=== PATIENT | male | born 1955 | race Caucasian/White ===

== ENCOUNTER 2022-09-22 08:16 | Day surgery (SDC) | payer MEDICARE, SELFPAY ==
[2022-09-22] VITALS (11 sets, daily range): BP systolic 91–148; BP diastolic 47–84; PULSE 52–69; RESP 14–16; TEMP 36.2–36.8; O2SAT 94–99; BMI 31.1
[2022-09-22] MEDS: LACTATED RINGERS 1000 ML 1,000 ML 100 ML IV (08:30)
[2022-09-22] MEDS: SODIUM CHLORIDE 0.9 % (FLUSH) 10 ML SYRINGE IVF (08:30)
--- NOTE | 2022-09-22 08:55 | SUR.PREOP ---
Home covid test negative
--- NOTE | 2022-09-22 09:13 | SUR.PREOP ---
PT consult done at 0905 for crutch assessment/education.
[2022-09-22] MEDS: CEFAZOLIN 2 GM in 0.9 % SODIUM CHLORIDE Mini-bag 100 ML IVPB (10:21)
[2022-09-22] MEDS: ROPIVACAINE 0.5% 30 ML 150 MG INJECTION (10:51)
--- NOTE | 2022-09-22 10:53 | P.ORPRC_ITS ---
Procedure Note Date of procedure: 09/22/22 Procedure: PREOPERATIVE DIAGNOSIS: 1. Right knee medial meniscus tear POSTOPERATIVE DIAGNOSIS: 1. Right knee medial meniscus tear 2. 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 Right knee arthroscopic partial medial meniscectomy SURGEON: Hieu Miramontes M.D. INTERNATIONAL ACCOUNT REPRESENTATIVE: ALEXANDER Michele. Of note, an surgeon's assistant was critical for this case to aid in patient positioning, knee manipulation, instrument exchange, and closure. ANESTHESIA: Spinal EBL: 2ml TOURNIQUET: 25 minutes at 300 torr COMPLICATIONS: None evident INDICATIONS: The patient is a pleasant 66-year-old male who has experienced right knee pain particularly with any twisting or turning. Physical exam was concerning for medial meniscus tear, this was confirmed on MRI. Additionally, attempted nonoperative management has been tried, and failed. Thus, surgery was recommended. FINDINGS: Complex tearing posterior horn to midbody medial meniscus. Grade 3 chondromalacia medial femoral condyle broadly. Also grade 3 chondromalacia patella median ridge and medial facet with adjoining trochlear groove and medial anterior femur. Lateral compartment was intact lateral meniscus and articular cartilage. ACL and PCL were intact robust. No loose bodies evident. DESCRIPTION OF PROCEDURE: After a thorough discussion of risks, benefits, and alternatives, the patient was brought to the operating room and placed upon the operating table. Induction of anesthesia was undertaken as previously noted. 2g iv Ancef was administered within 1 hr of incision preoperatively. Appropriate time-out was performed identifying proper patient, site, and procedure. The right lower extremity was prepped and draped in the appropriate sterile fashion using ChloraPrep. The limb was exsanguinated and tourniquet inflated. Anterolateral and anteromedial portals were established with an 11 blade, and a diagnostic arthroscopy was performed. This identified the findings as noted above. Following the diagnostic arthroscopy, a partial medial menisectomy was performed with the combination of basket forceps and a motorized shaver. Following this, the meniscus was re-probed and found to be stable. Approximately 25-30 % of the overall meniscus required resection. At this stage, the shaver was reinserted into the suprapatellar pouch and all remaining meniscal debris was evacuated. Instruments were removed, excess fluid was drained, and closure performed with 4-0 Monocryl with Steri-Strips. Dressings were applied, the tourniquet deflated, and the patient was awoken from anesthesia and transferred to the PACU in stable condition. PLAN: 1. Weightbear as tolerated operative extremity. Crutch / walker ambulation assistance PRN. 2. Ice, acetominophen and/or ibuprofen, and Percocet for pain as needed. 3. Knee range of motion and quad sets/straight leg raise regularly 4. Follow up with PA visit in 1-2 weeks for a wound check and possibly to initiate physical therapy.
--- NOTE | 2022-09-22 11:03 | W.ANESCHARGE ---
Anesthesia Charges Start Date/Time Anesthesia Start Date: 09/22/22 Anesthesia Start Time: 10:13 Stop Date/Time Anesthesia Stop Date: 09/22/22 Anesthesia Stop Time: 11:01 Summary Emergency: No
--- NOTE | 2022-09-22 14:07 | W.ANESCHARGE ---
Anesthesia Charges Start Date/Time Anesthesia Start Date: 09/22/22 Anesthesia Start Time: 10:13 Stop Date/Time Anesthesia Stop Date: 09/22/22 Anesthesia Stop Time: 11:01 Summary Emergency: No
== END 2022-09-22 12:14 | disposition home or self-care (01) ==
PROVIDERS: Visit Provider Orthopaedic Surgery Sports Medicine
PROC: (CPT 29870; principal; 2022-09-22 10:00)
DX: S83.231A Complex tear of medial meniscus, current injury, right knee, initial encounter (principal); M22.41 Chondromalacia patellae, right knee
CPT/HCPCS: 29881; 01400; 97161; J0690; J2250; J2400; J2704; J2795; J3010; J7120

== ENCOUNTER 2023-01-01 08:02 | Outpatient (CLI) | payer MEDICARE, SELFPAY ==
--- NOTE | 2023-01-01 08:15 | MR_ITS ---
[address] [address] Phone:?[phone] Fax:?[phone] Referring Physician Information: Hieu Miramontes M.D. [id number] [facility] [address] Phone:?[phone] Fax:?[phone] Patient:Raf Adrian D.O.B:?1955 Sex:?Male Phone:?[phone] [facility] MRN:?[id number] Exam Date:?01/01/2023 ? EXAM: MRI of the RIGHT KNEE, without contrast CLINICAL INFORMATION: Male, 67 years old, with one month history of right knee pain. INDICATION: Evaluate for quadriceps strain. PRIOR SURGERY: History of knee arthroscopy. PLAIN FILMS: Knee radiographs dated 11/24/2022. COMPARISONS: Right knee MRI dated 10/14/2021. TECHNICAL INFORMATION: Using a 1.5T MR scanner and a localizing surface coil: sagittals: PD, PDFS coronals: PD, T2FS axials: PD, PDFS SEDATION: None CONTRAST: None FINDINGS: Knee joint: Effusion: Moderate-large right knee effusion. Popliteal cyst: Tiny, unruptured popliteal (Jim's) cyst. Loose bodies: None. Subcutaneous and extra-articular soft tissues: Unremarkable. Ligaments: ACL: Intact ACL anteromedial and posterolateral bundles, without sprain or tear. PCL: Intact PCL, without acute or chronic injury. MCL: Mild to moderate thickening involving the proximal one third of the superficial MCL, without MCL tear (oral PD series 7 images 17-19). LCL: Intact LCL, without injury. Posterolateral corner: No posterolateral corner soft tissue injury. Popliteus, biceps femoris, iliotibial band, popliteofibular ligament and lateral gastrocnemius are intact. Posteromedial corner: No posteromedial corner soft tissue injury. Semimembranosus, pes anserine tendons and posterior oblique ligament are without injury, tendinopathy or bursitis. Extensor mechanism: Patellar tendon: Mild proximal patellar tendinopathy, without tear. Quadriceps tendon: Intact, without tendinopathy. Retinacula: Medial and lateral retinacula are intact. Fat pads: Low signal intensity foci within Hoffa's fat pad reflects scarring from prior arthroscopy. Medial compartment: Medial meniscus: Status post partial medial meniscectomy and/or repair. However, there is recurrent apical free edge and undersurface tearing of the posterior horn and body segments over a length of 4 cm (sagittal PDFS series 6 images 21- 27 and coronal STIR series 8 images 18-24). Meniscal extrusion measures 4 mm. No parameniscal cyst. Medial femoral condyle & tibial plateau: Broad-based grade II/III chondromalacia throughout the central, weightbearing aspect of the medial compartment, with minimal marginal osteophytosis. Lateral compartment: Lateral meniscus: No articular surface, meniscosynovial junction or root tear. No displacement, extrusion or parameniscal cyst. Lateral femoral condyle: No chondromalacia or osteochondral abnormality. Lateral tibial plateau: No chondromalacia or osteochondral abnormality. Patellofemoral joint: Patella: Broad-based grade II chondromalacia of the medial facet and median ridge of the patella, without reactive osseous changes. Trochlea: No chondromalacia or osteochondral abnormality. Proximal tibiofibular joint: Unremarkable, without evidence of ligament sprain injury, joint effusion or adjacent marrow edema. Bones: Approximately 2.8 x 1.8 cm area of poorly defined subchondral fracturing of the central surface of the medial femoral condyle, with extensive surrounding bone marrow edema. IMPRESSION: 1. Approximately 2.8 x 1.8 cm area of subchondral fracturing of the central surface of the medial femoral condyle, with extensive surrounding bone marrow edema. 2. Status post partial medial meniscectomy and repair. Complex recurrent apical free edge and undersurface tearing involves the posterior horn and body segments over a length of 4 7 m, with 4 mm of meniscal extrusion. 3. Mild osteoarthritis of the medial compartment, which has slightly progressed since the prior study dated 10/14/2021. 4. Mild chondromalacia of the patella, unchanged. 5. Moderate-large knee joint effusion with a tiny, unruptured popliteal (Jim's) cyst. 6. Chronic sequela low-grade proximal MCL sprain, without tear. 7. No ACL, PCL, or LCL sprain/tear. 8. No lateral meniscal tear or osteochondral abnormality of the lateral compartment. BC Electronically signed on 01/01/2023 10:01:00 AM by Tony Parra M.D.
== END 2023-01-01 08:03 | disposition home or self-care (01) ==
LOC: MRI 08:02
PROVIDERS: PCP Student in an Organized Health Care Education/Training Program; Visit Provider Orthopaedic Surgery Sports Medicine
DX: M25.561 Pain in right knee (principal); S83.241A Other tear of medial meniscus, current injury, right knee, initial encounter; M22.41 Chondromalacia patellae, right knee; M25.461 Effusion, right knee; S83.411A Sprain of medial collateral ligament of right knee, initial encounter; M17.11 Unilateral primary osteoarthritis, right knee; S76.111A Strain of right quadriceps muscle, fascia and tendon, initial encounter; Z98.890 Other specified postprocedural states
CPT/HCPCS: 73721